=== PATIENT | male | born 1960 | race Caucasian/White ===

== ENCOUNTER → 2017-04-06 | Outpatient (CLI) | payer BC, OTHER ==
[~2017-04-06] MED LIST: TAMS0.4C2 PO
--- NOTE | 2017-04-06 10:12 | KCIC ---
ELBOW RIGHT 2V Indication: Pain after injury 3 months ago. . Comparison: No comparison is available. FINDINGS: No evidence of an acute fracture. No bone destruction. Joint spaces and soft tissues appear grossly unremarkable. IMPRESSION: No evidence of acute fracture or dislocation. Considering the persistence of pain 3 months after injury, consider MRI right elbow for further evaluation. Electronically signed by: Jake Khoury MD (04/06/2017 10:09 AM) [id number]
== END | disposition home or self-care (01) ==
LOC: KCIC 08:28
PROVIDERS: ATTEND Family Medicine
DX: S59.901D Unspecified injury of right elbow, subsequent encounter (principal); X58.XXXD Exposure to other specified factors, subsequent encounter
CPT/HCPCS: 73070

== ENCOUNTER → 2018-06-06 | Day surgery (SDC) | payer OTHER ==
[~2018-06-06] MED LIST changes: +IV RINGERS,LACTATED 1000ML 1,000 ML IV SCH; +LIDOCAINE 1% PF 2 ML VIAL. ID PRN; +MIDAZOLAM HCL/PF 2 MG/2 ML VIAL. IV PRN; +PROPOFOL 40 ML IV ONE; +fentaNYL PF VIAL 100 MCG/2 ML VIAL IV PRN
[2018-06-06 08:50] VITALS: BP 132/74
--- NOTE | 2018-06-06 21:40 | CONS ---
DATE OF CONSULTATION: 06/06/2018 REASON FOR CONSULTATION: Screening. REFERRING PHYSICIAN: Dr. Landry Chavez. HISTORY OF PRESENT ILLNESS: A 57-year-old male with a past medical history is significant only for ankle surgery is seen for a screening colon exam. Bowel habits are regular without diarrhea or constipation. There has been no melena and/or hematochezia. Weight and appetite are stable. There is no family history of colon polyps or colon cancer. He has not undergone previous studies and is without additional complaints. PAST MEDICAL HISTORY: Status post left ankle surgery. ALLERGIES: SULFA. MEDICATIONS: Include tamsulosin 0.4 mg daily. SOCIAL HISTORY: Does not drink or smoke. FAMILY HISTORY: Noncontributory. REVIEW OF SYSTEMS: Per records. PHYSICAL EXAMINATION: GENERAL: Reveals a well-nourished, well-developed male. VITAL SIGNS: Temperature is 97.7, pulse is 64 and respiratory rate is 20. HEENT: Reveals normocephalic and atraumatic head. Pupils and extraocular muscles are not tested. Sclerae anicteric. NECK: Supple. LUNGS: Clear. CARDIOVASCULAR: Reveals an S1 and S2 without S3, S4 or appreciable murmur. ABDOMEN: Reveals soft abdomen, normal bowel sounds without appreciable hepatosplenomegaly. EXTREMITIES: Reveals no cyanosis, clubbing or edema. IMPRESSION: Colorectal screening is warranted. Risks and benefits of the procedure including risk of hemorrhage and perforation during the operation have been discussed with the patient who is willing to proceed. I would like to thank Dr. Chavez for allowing us to consult and participate in this patient's care. SHERLEY HUBBARD MD DR: CHYNA/oswaldo JOB#: [id number] / [id number] Landry Corbin
== END | disposition home or self-care (01) ==
LOC: OPS 06:40 → EDSTATUS 08:00
PROVIDERS: ATTEND Internal Medicine Gastroenterology
DX: Z12.11 Encounter for screening for malignant neoplasm of colon (principal); K64.0 First degree hemorrhoids; Z79.899 Other long term (current) drug therapy; Z98.890 Other specified postprocedural states
CPT/HCPCS: 45378; J2704; J7120